=== PATIENT | male | born 1945 | race Caucasian/White ===

== ENCOUNTER → 2018-01-31 13:06 | Outpatient (CLI) | payer MEDICARE, SELFPAY ==
[2018-01-31 14:04] LABS: Hematocrit 46.4 % (40-54); Hemoglobin 15.3 g/dl (13.0-16.5); Mean Corpuscular Hgb 29.3 pg (27.0-32.0); Mean Corpuscular Volume 88.9 fL (80-94); Mean Platelet Vol. 9.5 fl (6.2-12.0); Platelet Count 204 K/mm3 (150-450); RBC Distribution Width SD 42.1 fl (35.1-43.9); Red Blood Count 5.22 M/mm3 (4.6-6.2); White Blood Count 5.9 K/mm3 (4.4-11.0)
[2018-01-31 14:05] LABS: Scan Indicated on CBC? Y/N NO
[2018-01-31 14:35] LABS: Valproic Acid (Depakene) Level 44 ug/mL (50-100)
[2018-01-31 14:37] LABS: AST(SGOT) 14 U/L (15-37); Alanine Aminotransfer ALT/SGPT 21 U/L (16-61); Albumin, Serum 3.7 g/dL (3.2-5.0); Alkaline Phosphatase 65 U/L (45-117); Bilirubin, Direct 0.12 mg/dL (0.00-0.30); Globulin 3.4 g/dL (2.2-4.2); Protein, Total 7.1 g/dL (6.4-8.2)
== END ==
PROVIDERS: Visit Provider Psychiatry & Neurology Psychiatry
DX: F34.0 Cyclothymic disorder (principal); Z79.899 Other long term (current) drug therapy
CPT/HCPCS: 36415; 80076; 80164; 85027

== ENCOUNTER → 2018-07-19 10:44 | Outpatient (CLI) | payer MEDICARE, SELFPAY ==
[2018-07-19 11:55] LABS: Hematocrit 44.4 % (40-54); Hemoglobin 15.2 g/dl (13.0-16.5); Mean Corp Hgb Conc 34.2 g/gl (32-36); Mean Corpuscular Hgb 30.3 pg (27.0-32.0); Mean Corpuscular Volume 88.4 fL (80-94); Mean Platelet Vol. 9.9 fl (6.2-12.0); Platelet Count 216 K/mm3 (150-450); RBC Distribution Width CV 13.3 % (11.6-14.6); Red Blood Count 5.02 M/mm3 (4.6-6.2); White Blood Count 4.7 K/mm3 (4.4-11.0)
[2018-07-19 11:57] LABS: Scan Indicated on CBC? Y/N NO
[2018-07-19 12:54] LABS: Valproic Acid (Depakene) Level 54 ug/mL (50-100)
== END ==
PROVIDERS: Referring Provider Psychiatry & Neurology Psychiatry; Visit Provider Psychiatry & Neurology Psychiatry
DX: F34.0 Cyclothymic disorder (principal)
CPT/HCPCS: 36415; 80164; 85027

== ENCOUNTER → 2018-11-17 09:47 | Outpatient (CLI) | payer MEDICARE, SELFPAY ==
--- NOTE | 2018-11-17 09:55 | RAD_ITS ---
STUDY: X-RAY - LEFT KNEE REASON FOR EXAM: Male, 72 years old. Pain TECHNIQUE: 3 view(s) of the knee. COMPARISON: None. FINDINGS: Normal visualized distal femur. Normal visualized proximal tibia and fibula. Normal proximal tibiofibular articulation. Normal medial femorotibial compartment. Normal lateral femorotibial compartment. Normal patellofemoral articulation. The soft tissue structures are unremarkable. RAD/Knee 3 Views IMPRESSION: Normal x-ray examination of the knee. Electronically Signed: Barry Dias MD at 23:44 EST Tel , Service support ,
== END ==
LOC: MTLAB 09:51 → MTRAD 10:01
PROVIDERS: Family Provider Family Medicine; PCP Family Medicine; Referring Provider Family Medicine; Visit Provider Family Medicine
DX: M25.569 Pain in unspecified knee (principal); E78.5 Hyperlipidemia, unspecified; R00.2 Palpitations
CPT/HCPCS: 73562

== ENCOUNTER → 2018-11-24 10:10 | Outpatient (CLI) | payer MEDICARE, SELFPAY ==
[2018-11-24 12:02] LABS: Absolute Lymphocyte Count 2.14 X10^3/ul (0.83-4.51); Absolute Neutrophil Count 3.1 X10^3/uL (2.0-7.7); Basophil# 0.05 X10^3/uL; Basophil% 0.9 % (0-1); Eosinophils% 1.7 % (0-5); Hemoglobin 15.5 g/dl (13.0-16.5); Lymphocyte # 2.14 X10^3/ul (4.0); Lymphocyte % 36.5 % (19-41); Mean Corpuscular Hgb 29.6 pg (27.0-32.0); Mean Corpuscular Volume 89.7 fL (80-94); Mean Platelet Vol. 10.4 fl (6.2-12.0); Monocyte% 6.8 % (0-10); Neutrophil # 3.14 X10^3/uL (2.7-7.7); Neutrophil % 53.6 % (47-70); Platelet Count 252 K/mm3 (150-450); RBC Distribution Width CV 13.3 % (11.6-14.6); RBC Distribution Width SD 43.6 fl (35.1-43.9); Red Blood Count 5.24 M/mm3 (4.6-6.2); White Blood Count 5.9 K/mm3 (4.4-11.0)
[2018-11-24 12:06] LABS: POSITIVE COUNT NO; POSITIVE DIFFERENTIAL NO; POSITIVE MORPHOLOGY NO
[2018-11-24 12:24] LABS: ALB/GLOB Ratio 0.9 RATIO (0.9-2.4); AST(SGOT) 13 U/L (15-37); Alanine Aminotransfer ALT/SGPT 29 U/L (16-61); Albumin, Serum 3.5 g/dL (3.2-5.0); Alkaline Phosphatase 77 U/L (45-117); Anion Gap 10 (5-15); BUN 21 mg/dL (7-18); BUN/Creat Ratio 17.6 RATIO (10-20); Calcium,Total 9.2 mg/dL (8.5-10.1); Chloride 105 mmol/L (98-107); Cholesterol 159 mg/dL (200); Creatinine, Serum 1.19 mg/dL (0.70-1.30); EST Glomerular Filtration Rate 64 mL/min (>60); Est Glom Filt Rate - Afr Amer 78 mL/min (>60); Globulin 3.8 g/dL (2.2-4.2); Glucose 83 mg/dL (74-106); High Density Lipoprotein 35 mg/dL; Magnesium 2.2 mg/dL (1.6-2.6); Potassium 4.7 mmol/L (3.5-5.1); Protein, Total 7.3 g/dL (6.4-8.2); Sodium Level 142 mmol/L (136-145); Thyroid Stim Hormone (TSH) 1.82 uIU/mL (0.358-3.74); Triglycerides 265 mg/dL; Very Low Density Lipoprotein 53 mg/dL (5-40)
== END ==
PROVIDERS: Family Provider Family Medicine; PCP Family Medicine; Referring Provider Family Medicine; Visit Provider Family Medicine
DX: E78.5 Hyperlipidemia, unspecified (principal); R00.2 Palpitations
CPT/HCPCS: 36415; 80053; 80061; 83735; 84443; 85025

== ENCOUNTER → 2019-08-15 10:22 | Outpatient (CLI) | payer MEDICARE, SELFPAY ==
[2019-08-15 12:52] LABS: Hemoglobin 15.7 g/dL (13.0-16.5); Mean Corp Hgb Conc 32.7 g/dL (32-36); Mean Corpuscular Hgb 29.5 pg (27.0-32.0); Mean Corpuscular Volume 90.1 fL (80-94); Mean Platelet Vol. 9.7 fl (6.2-12.0); Platelet Count 214 K/mm3 (150-450); RBC Distribution Width CV 12.8 % (11.6-14.6); RBC Distribution Width SD 41.8 fl (35.1-43.9); Red Blood Count 5.33 M/mm3 (4.6-6.2); White Blood Count 4.9 K/mm3 (4.4-11.0)
[2019-08-15 13:00] LABS: ALB/GLOB Ratio 0.9 RATIO (0.9-2.4); AST(SGOT) 16 U/L (15-37); Alanine Aminotransfer ALT/SGPT 26 U/L (16-61); Albumin, Serum 3.4 g/dL (3.2-5.0); Alkaline Phosphatase 64 U/L (45-117); Anion Gap 6 (5-15); BUN 16 mg/dL (7-18); BUN/Creat Ratio 13.6 RATIO (10-20); Chloride 109 mmol/L (98-107); Creatinine, Serum 1.18 mg/dL (0.70-1.30); EST Glomerular Filtration Rate 65 mL/min (>60); Est Glom Filt Rate - Afr Amer 78 mL/min (>60); Globulin 3.6 g/dL (2.2-4.2); Glucose 86 mg/dL (74-106); Potassium 4.4 mmol/L (3.5-5.1); Sodium Level 139 mmol/L (136-145)
[2019-08-15 13:15] LABS: Hemoglobin A1c 5.8 % (4.2-6.3)
[2019-08-15 13:59] LABS: Valproic Acid (Depakene) Level 62 ug/mL (50-100)
== END ==
PROVIDERS: Family Provider Family Medicine; PCP Family Medicine; Referring Provider Psychiatry & Neurology Psychiatry; Visit Provider Psychiatry & Neurology Psychiatry
DX: Z51.81 Encounter for therapeutic drug level monitoring (principal); Z79.899 Other long term (current) drug therapy
CPT/HCPCS: 36415; 80053; 80164; 83036; 85027

== ENCOUNTER → 2020-02-23 09:03 | Outpatient (CLI) | payer MEDICARE, SELFPAY ==
[2020-02-23 10:20] LABS: Hematocrit 47.9 % (40-54); Hemoglobin 15.8 g/dL (13.0-16.5); Mean Corpuscular Hgb 29.1 pg (27.0-32.0); Mean Corpuscular Volume 88.2 fL (80-94); Mean Platelet Vol. 9.5 fl (6.2-12.0); Platelet Count 263 K/mm3 (150-450); RBC Distribution Width CV 13.1 % (11.6-14.6); Red Blood Count 5.43 M/mm3 (4.6-6.2); White Blood Count 5.5 K/mm3 (4.4-11.0)
[2020-02-23 10:42] LABS: Valproic Acid (Depakene) Level 52 ug/mL (50-100)
[2020-02-23 10:49] LABS: AST(SGOT) 17 U/L (15-37); Alanine Aminotransfer ALT/SGPT 37 U/L (16-61); Albumin, Serum 3.4 g/dL (3.2-5.0); Alkaline Phosphatase 67 U/L (45-117); Bilirubin, Direct 0.12 mg/dL (0.00-0.30); Cholesterol 170 mg/dL (200); Globulin 3.7 g/dL (2.2-4.2); High Density Lipoprotein 38 mg/dL; Protein, Total 7.1 g/dL (6.4-8.2); Triglycerides 213 mg/dL; Very Low Density Lipoprotein 43 mg/dL (5-40)
== END ==
PROVIDERS: PCP Family Medicine; Referring Provider Psychiatry & Neurology Psychiatry; Visit Provider Psychiatry & Neurology Psychiatry
DX: F34.0 Cyclothymic disorder (principal)
CPT/HCPCS: 36415; 80061; 80076; 80164; 85027

== ENCOUNTER → 2020-08-29 12:19 | Outpatient (CLI) | payer MEDICARE, SELFPAY ==
[2020-08-29 15:23] LABS: Hematocrit 48.3 % (40-54); Hemoglobin 16.1 g/dL (13.0-16.5); Mean Corp Hgb Conc 33.3 g/dL (32-36); Mean Corpuscular Hgb 29.8 pg (27.0-32.0); Mean Corpuscular Volume 89.3 fL (80-94); Mean Platelet Vol. 10.5 fl (6.2-12.0); Platelet Count 262 K/mm3 (150-450); RBC Distribution Width CV 12.6 % (11.6-14.6); RBC Distribution Width SD 41.1 fl (35.1-43.9); Red Blood Count 5.41 M/mm3 (4.6-6.2); White Blood Count 5.3 K/mm3 (4.4-11.0)
[2020-08-29 16:09] LABS: AST(SGOT) 17 U/L (15-37); Alanine Aminotransfer ALT/SGPT 37 U/L (16-61); Albumin, Serum 3.4 g/dL (3.2-5.0); Alkaline Phosphatase 83 U/L (45-117); Bilirubin, Direct 0.14 mg/dL (0.00-0.30); Globulin 3.7 g/dL (2.2-4.2); Protein, Total 7.1 g/dL (6.4-8.2)
[2020-08-29 16:10] LABS: Valproic Acid (Depakene) Level 68 ug/mL (50-100)
== END ==
PROVIDERS: PCP Family Medicine; Referring Provider Psychiatry & Neurology Psychiatry; Visit Provider Psychiatry & Neurology Psychiatry
DX: Z51.81 Encounter for therapeutic drug level monitoring (principal); Z79.899 Other long term (current) drug therapy
CPT/HCPCS: 36415; 80076; 80164; 85027

== ENCOUNTER → 2021-02-14 12:03 | Outpatient (CLI) | payer MEDICARE, SELFPAY ==
[2021-02-14 15:08] LABS: Hematocrit 51.4 % (40-54); Hemoglobin 16.6 g/dL (13.0-16.5); Mean Corp Hgb Conc 32.3 g/dL (32-36); Mean Corpuscular Hgb 28.9 pg (27.0-32.0); Mean Corpuscular Volume 89.4 fL (80-94); Mean Platelet Vol. 10.1 fl (6.2-12.0); Platelet Count 255 K/mm3 (150-450); RBC Distribution Width CV 12.9 % (11.6-14.6); RBC Distribution Width SD 42.6 fl (35.1-43.9); Red Blood Count 5.75 M/mm3 (4.6-6.2); White Blood Count 5.2 K/mm3 (4.4-11.0)
[2021-02-14 15:26] LABS: Valproic Acid (Depakene) Level 91 ug/mL (50-100)
[2021-02-14 15:32] LABS: AST(SGOT) 14 U/L (15-37); Alanine Aminotransfer ALT/SGPT 33 U/L (16-61); Albumin, Serum 3.5 g/dL (3.2-5.0); Alkaline Phosphatase 72 U/L (45-117); Bilirubin, Direct 0.17 mg/dL (0.00-0.30); Globulin 3.8 g/dL (2.2-4.2); Protein, Total 7.3 g/dL (6.4-8.2)
== END ==
PROVIDERS: PCP Family Medicine; Referring Provider Psychiatry & Neurology Psychiatry; Visit Provider Psychiatry & Neurology Psychiatry
DX: Z01.818 Encounter for other preprocedural examination (principal); Z52.001 Unspecified donor, stem cells; Z79.899 Other long term (current) drug therapy
CPT/HCPCS: 36415; 80076; 80164; 85027; 86900; 86901

== ENCOUNTER → 2021-02-17 12:58 | Outpatient (CLI) | payer SELFPAY | PROVIDERS: PCP Family Medicine | DX: Z52.9 Donor of unspecified organ or tissue (principal) ==

== ENCOUNTER 2021-11-14 10:21 | Outpatient (CLI) | payer MEDICARE, SELFPAY ==
[2021-11-14 12:24] LABS: Hematocrit 52.3 % (40-54); Mean Corp Hgb Conc 32.5 g/dL (32-36); Mean Corpuscular Hgb 28.7 pg (27.0-32.0); Mean Corpuscular Volume 88.3 fL (80-94); Mean Platelet Vol. 10.1 fl (6.2-12.0); Platelet Count 272 K/mm3 (150-450); RBC Distribution Width CV 12.7 % (11.6-14.6); RBC Distribution Width SD 41.1 fl (35.1-43.9); Red Blood Count 5.92 M/mm3 (4.6-6.2)
[2021-11-14 12:46] LABS: Valproic Acid (Depakene) Level 61 ug/mL (50-100)
[2021-11-14 12:53] LABS: AST(SGOT) 17 U/L (15-37); Alanine Aminotransfer ALT/SGPT 37 U/L (16-61); Albumin, Serum 3.7 g/dL (3.2-5.0); Alkaline Phosphatase 69 U/L (45-117); Bilirubin, Direct 0.16 mg/dL (0.00-0.30); Globulin 4.1 g/dL (2.2-4.2); Protein, Total 7.8 g/dL (6.4-8.2)
== END 2021-11-14 23:59 | disposition short-term general hospital (02) ==
LOC: MTLAB 10:22
PROVIDERS: PCP Family Medicine; Referring Provider Psychiatry & Neurology Psychiatry; Visit Provider Psychiatry & Neurology Psychiatry
DX: Z51.81 Encounter for therapeutic drug level monitoring (principal); Z79.899 Other long term (current) drug therapy
CPT/HCPCS: 36415; 80076; 80164; 85027

== ENCOUNTER → 2022-08-31 | Outpatient (CLI) | payer MEDICARE, SELFPAY ==
[2022-08-31 15:29] LABS: Hematocrit 47.3 % (40-54); Mean Corp Hgb Conc 33.8 g/dL (32-36); Mean Corpuscular Hgb 29.5 pg (27.0-32.0); Mean Corpuscular Volume 87.3 fL (80-94); Mean Platelet Vol. 9.9 fl (6.2-12.0); Platelet Count 265 K/mm3 (150-450); RBC Distribution Width CV 13.2 % (11.6-14.6); RBC Distribution Width SD 41.6 fl (35.1-43.9); Red Blood Count 5.42 M/mm3 (4.6-6.2); White Blood Count 5.9 K/mm3 (4.4-11.0)
[2022-08-31 15:42] LABS: ALB/GLOB Ratio 0.9 RATIO (0.9-2.4); AST(SGOT) 14 U/L (15-37); Alanine Aminotransfer ALT/SGPT 27 U/L (16-61); Albumin, Serum 3.4 g/dL (3.2-5.0); Alkaline Phosphatase 73 U/L (45-117); Anion Gap 8 (5-15); BUN 22 mg/dL (7-18); BUN/Creat Ratio 16.4 RATIO (10-20); Calcium,Total 9.4 mg/dL (8.5-10.1); Chloride 107 mmol/L (98-107); Creatinine, Serum 1.34 mg/dL (0.70-1.30); EST Glomerular Filtration Rate 55 mL/min (>60); Est Glom Filt Rate - Afr Amer 67 mL/min (>60); Globulin 3.6 g/dL (2.2-4.2); Glucose 166 mg/dL (74-106); Sodium Level 138 mmol/L (136-145)
[2022-08-31 15:58] LABS: Valproic Acid (Depakene) Level 69 ug/mL (50-100)
[2022-08-31 16:03] LABS: Hemoglobin A1c 5.7 % (3.8-5.6)
== END | disposition home or self-care (01) ==
PROVIDERS: PCP Family Medicine; Referring Provider Psychiatry & Neurology Psychiatry; Visit Provider Psychiatry & Neurology Psychiatry
DX: R73.9 Hyperglycemia, unspecified (principal); Z79.899 Other long term (current) drug therapy
CPT/HCPCS: 36415; 80053; 80164; 83036; 85027

== ENCOUNTER → 2023-03-24 | Outpatient (CLI) | payer MEDICARE, SELFPAY ==
[2023-03-24 15:35] LABS: Hematocrit 49.5 % (40-54); Hemoglobin 16.3 g/dL (13.0-16.5); Mean Corp Hgb Conc 32.9 g/dL (32-36); Mean Corpuscular Hgb 29.4 pg (27.0-32.0); Mean Corpuscular Volume 89.4 fL (80-94); Mean Platelet Vol. 10.1 fl (6.2-12.0); Platelet Count 232 K/mm3 (150-450); RBC Distribution Width SD 42.4 fl (35.1-43.9); Red Blood Count 5.54 M/mm3 (4.6-6.2); White Blood Count 5.8 K/mm3 (4.4-11.0)
[2023-03-24 16:10] LABS: Valproic Acid (Depakene) Level 45 ug/mL (50-100)
[2023-03-24 16:22] LABS: AST(SGOT) 16 U/L (15-37); Alanine Aminotransfer ALT/SGPT 23 U/L (16-61); Albumin, Serum 3.3 g/dL (3.2-5.0); Alkaline Phosphatase 62 U/L (45-117); Bilirubin, Direct 0.13 mg/dL (0.00-0.30); Globulin 3.8 g/dL (2.2-4.2); Protein, Total 7.1 g/dL (6.4-8.2)
== END | disposition home or self-care (01) ==
LOC: MTLAB 11:46
PROVIDERS: PCP Family Medicine; Referring Provider Psychiatry & Neurology Psychiatry; Visit Provider Psychiatry & Neurology Psychiatry
DX: Z79.899 Other long term (current) drug therapy (principal)
CPT/HCPCS: 36415; 80076; 80164; 85027

== ENCOUNTER 2024-01-19 09:12 | Emergency (ER) | payer OTHER, MEDICARE, SELFPAY ==
[2024-01-19] VITALS (10 sets, daily range): BP systolic 129–169; BP diastolic 78–100; PULSE 62–82; RESP 16–30; TEMP 36.7; O2SAT 94–98; BMI 34.7
--- NOTE | 2024-01-19 09:37 | EKG12_ITS ---
Test Reason : ALT Blood Pressure : / mmHG Vent. Rate : 075 BPM Atrial Rate : 075 BPM P-R Int : 152 ms QRS Dur : 086 ms QT Int : 364 ms P-R-T Axes : 030 -15 067 degrees QTc Int : 406 ms Normal sinus rhythm with sinus arrhythmia Nonspecific ST abnormality Abnormal ECG Confirmed by LAKHWINDER CARRIZALES, MARIANELA ([id number]), editor magazine [employer] ([id number]) on 01/20/2024 8:58:14 AM Referred By: Confirmed By:MARIANELA KEANE MD
--- NOTE | 2024-01-19 09:37 | RAD_ITS ---
INDICATION: hypertension EXAMINATION/TECHNIQUE: X-RAY - XR Chest 1 View COMPARISON: No relevant prior comparison study available FINDINGS: LINES/DEVICES: None. LUNGS: Hypoventilatory changes in lung bases. No focal infiltrate is seen. No evidence of pleural effusions. MEDIASTINUM AND CARDIOVASCULAR STRUCTURES: Cardiac silhouette not enlarged. Central airways and mediastinal contour are unremarkable. BONES AND SOFT TISSUES: Unremarkable. RAD/Chest 1 View (Portable) IMPRESSION: No radiographic evidence of acute cardiopulmonary disease. Electronically Signed: Rd Bustillo MD at 10:19 EDT ,
--- NOTE | 2024-01-19 09:37 | CT_ITS ---
INDICATION: Altered mental status. EXAMINATION: CT BRAIN - CT Head or Brain W/O Contrast Injection TECHNIQUE: Multiple axial images were obtained of the head without intravenous contrast. A radiation dose optimization technique was used for this scan. IV Contrast dosage and agent: None. RADIATION DOSAGE (If Supplied By Facility): CTDIvol = ( 44.99 ) mGy, DLP = ( 907.97 ) mGycm COMPARISON: No relevant prior comparison study available FINDINGS: BRAIN PARENCHYMA: No intra- or extra-axial hemorrhage. No evidence of acute infarct. No intracranial mass or mass effect. There is preservation of the cheng/white matter interface. Mild chronic periventricular deep white matter changes likely due to microvascular disease. Posterior fossa structures are unremarkable. CSF SPACES: Mild diffuse atrophy. No hydrocephalus. Basal cisterns are patent. CALVARIUM, SKULL BASE, PARANASAL SINUSES AND MASTOID AIR CELLS: Clear. No discrete lytic or blastic abnormalities. ORBITS: Both globes, extraocular muscles, optic nerves and retrobulbar fat appear unremarkable. CT/Brain/Head without Contrast IMPRESSION: No acute intracranial process. Electronically Signed: Rd Bustillo MD at 10:19 EDT ,
--- NOTE | 2024-01-19 09:38 | EX.ED.DYSGE1 ---
HPI History of Present Illness Chief Complaint: Weakness Informant: patient, family and EMS Narrative Narrative: 78-year-old male brought to the emergency department via EMS with a chief complaint of weakness. Patient can recall that yesterday he went and bought berries and hubcap but does not know if he slept in his bed last night. He states that he knows that he was in a chair at some point was unable to get up. 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 Apparently sometime passed and the patient was found on the ground by the [place] gentleman. Patient reportedly incontinent of urine. He states he feels weak but feels that all of his arms and legs are moving okay. He denies any pain. No dyspnea. Patient states he used to see a retired psychiatrist as his primary care doctor in 10 years ago [facility] [place] He states he was last there in November. He does not know his medicines or any medical problems he is treated for. He is unsure of prior surgeries. PFSH PFSH Medical History unable to obtain unable to obtain Home Medications atorvastatin 20 mg tablet 20 mg PO DAILY 01/19/24 [History Last Taken Unknown] cyanocobalamin (vitamin B-12) PO 01/19/24 [History Last Taken Unknown] fluoxetine 20 mg capsule 20 mg PO DAILY 01/19/24 [History Last Taken Unknown] folic acid 400 mcg tablet 400 mcg PO DAILY 01/19/24 [History Last Taken Unknown] omega-3 fatty acids PO 01/19/24 [History Last Taken Unknown] timolol ophthalmic (eye) 01/19/24 [History Last Taken Unknown] valproic acid 250 mg capsule 250 mg PO BID 01/19/24 [History Last Taken Unknown] Allergy/AdvReac Type Severity Reaction Status Date / Time No Known Allergies Allergy Verified 01/19/24 09:13 Surgical History unable to obtain unable to obtain Social History Smoking Status: Never smoker ROS ROS ED ROS Narrative Patient reports generalized weakness and that his legs were not working this morning. Constitutional Constitutional ED: Denies chills, fever(s) or weight loss Eyes Eyes: Denies change in vision or diplopia ENT ENT ED: Denies ear pain, rhinorrhea or sore throat Cardiovascular Cardiovascular: Denies chest pain, orthopnea, palpitations or racing heartbeat Respiratory/Chest Respiratory/Chest: Denies cough, dyspnea or orthopnea Gastrointestinal Gastrointestinal: Denies abdominal pain, diarrhea, nausea or vomiting Genitourinary Genitourinary ED: Denies dysuria, hematuria or urinary frequency Musculoskeletal Musculoskeletal: Denies arthralgias or myalgias Integumentary Denies abscess or rash Neurologic Neurologic: Denies headache(s) or weakness Psychiatric Psychiatric: Denies anxiety, depression, suicidal ideation or suicidal thoughts Endocrine Endocrinology: Denies polydipsia, polyphagia or polyuria Allergic/Immunologic Allergic/Immunologic ED: Denies mouth swelling, tongue swelling or urticaria EXAM Physical Exam Narrative Exam Narrative: Patient has a strong smell of urine about him. Const Vital Signs: 01/19/24 09:13 01/19/24 09:20 01/19/24 11:12 Temperature 98.0 F Temperature Source Oral Pulse Rate 77 62 Respiratory Rate 19 H 16 Respiratory Effort Normal Non-Labored Respiratory Pattern Normal Blood Pressure 141/87 H 129/82 H Blood Pressure Mean 105 97 Pulse Ox 96 97 Oxygen Delivery Method Room Air Room Air 01/19/24 11:55 01/19/24 12:00 01/19/24 12:15 Temperature Temperature Source Pulse Rate 74 73 70 Respiratory Rate 30 H 30 H 29 H Respiratory Effort Respiratory Pattern Blood Pressure 145/90 H 149/93 H Blood Pressure Mean 106 111 Pulse Ox 96 98 94 Oxygen Delivery Method 01/19/24 12:30 01/19/24 12:45 01/19/24 13:00 Temperature Temperature Source Pulse Rate 77 82 69 Respiratory Rate 28 H 25 H 25 H Respiratory Effort Respiratory Pattern Blood Pressure 155/97 H 158/100 H 161/97 H Blood Pressure Mean 111 114 114 Pulse Ox 94 95 Oxygen Delivery Method 01/19/24 13:15 01/19/24 15:00 Temperature Temperature Source Pulse Rate 68 64 Respiratory Rate 21 H 16 Respiratory Effort Respiratory Pattern Blood Pressure 169/93 H 129/78 H Blood Pressure Mean 114 95 Pulse Ox 96 97 Oxygen Delivery Method Room Air Positive well nourished, well developed and obese General Appearance ED: well developed Nutritional Appearance: obese HEENT Reports normocephalic, head/scalp atraumatic and moist mucous membranes Eyes PERRL and EOMs intact bilaterally Neck no lymphadenopathy, supple and no JVD Resp normal respiratory effort and clear to auscultation bilaterally Cardio regular rate, regular rhythm and no murmurs GI normal to inspection, nondistended, normoactive bowel sounds and non-tender Palpation: soft Back/Spine no CVA tenderness and normal ROM Extremity General Extremety ED: Yes edema General Extremity: edema bilateral lower extremity Details: mild Neuro oriented x3 and CN's II-XII intact bilaterally Sensorium / Orientation: alert Motor Exam: strength 5/5 throughout Psych Appearance: grossly normal Attitude: calm Activity / Motor Behavior: appropriate eye contact Mood & Affect: Negative for depressed or tearful Thought Process: circumstantial and disorganized Skin no rashes or lesions noted and no wounds MDM MDM MDM Narrative Medical decision making narrative: CT of the brain demonstrates no acute process. Interpretation of the chest x-ray is no acute process. Hemoglobin 15.4 with a white count of 6.7. Platelet count of 156. BMP shows a BUN of 19 creatinine 1.50 normal sodium and potassium. Anion gap is 6 CO2 of 24. Normal liver enzymes. Normal lipase. Troponin is 20 BNP at 65.5. Valproic acid is within normal limits. Urinalysis with no obvious infection. Patient is up and walking. He seems at baseline per family. They feel comfortable taking him home. I am not seeing an obvious cause for the patient's symptoms. He is not sure why his legs were not working. Family will be able to stay with him tonight. They are to return if there is any concerns for the patient is worsening. History & Record Review Discussion w/independent historian: EMS personnel, Patient and Family Lab Data Attestation: I reviewed the patient's lab results. Labs: Laboratory Results - last 24 hr 01/19/24 01/19/24 01/19/24 09:40 10:20 11:20 WBC 6.7 RBC 5.22 Hgb 15.4 Hct 47.2 MCV 90.4 MCH 29.5 MCHC 32.6 RDW Std Deviation 43.8 RDW Coeff of Jaida 13.2 Plt Count 156 MPV 10.3 Immature Gran % (Auto) 1.600 H Neut % (Auto) 72.7 H Lymph % (Auto) 10.5 L Peach % (Auto) 14.1 H Eos % (Auto) 0.4 Baso % (Auto) 0.7 Absolute Neuts (auto) 4.9 Absolute Lymphs (auto) 0.71 L Nucleated RBC % 0 PT 14.3 INR 1.1 APTT 30.6 Sodium Cancelled 139 Potassium Cancelled 4.2 Chloride Cancelled 109 H Carbon Dioxide Cancelled 24.0 Anion Gap Cancelled 6 BUN Cancelled 19 H Creatinine Cancelled 1.50 H Estim Creat Clear Calc Cancelled 50.45 Est GFR (MDRD) Af Amer Cancelled 59 L Est GFR (MDRD) Non-Af Cancelled 48 L BUN/Creatinine Ratio Cancelled 12.7 Glucose Cancelled 91 Calcium Cancelled 9.0 Total Bilirubin Cancelled 0.60 Direct Bilirubin Cancelled 0.18 AST Cancelled 17 ALT Cancelled 23 Alkaline Phosphatase Cancelled 53 Troponin I High Sens Cancelled 20 B-Natriuretic Peptide 65.5 Total Protein Cancelled 6.7 Albumin Cancelled 3.2 Globulin Cancelled 3.5 Lipase Cancelled 36 Urine Color Yellow Urine Clarity Clear Urine pH 6.0 Ur Specific Kyle 1.015 Urine Protein Negative Urine Glucose (UA) Normal Urine Ketones 5 H Urine Occult Blood 10 H Urine Nitrite Negative Urine Bilirubin Negative Urine Urobilinogen Normal Ur Leukocyte Esterase Negative Urine RBC 0 SEEN Urine WBC 0 SEEN Ur Squamous Epith Cells 0-5 SEEN Urine Bacteria 0 SEEN Urine Mucus 0 SEEN Valproic Acid 01/19/24 13:41 WBC RBC Hgb Hct MCV MCH MCHC RDW Std Deviation RDW Coeff of Jaida Plt Count MPV Immature Gran % (Auto) Neut % (Auto) Lymph % (Auto) Peach % (Auto) Eos % (Auto) Baso % (Auto) Absolute Neuts (auto) Absolute Lymphs (auto) Nucleated RBC % PT INR APTT Sodium Potassium Chloride Carbon Dioxide Anion Gap BUN Creatinine Estim Creat Clear Calc Est GFR (MDRD) Af Amer Est GFR (MDRD) Non-Af BUN/Creatinine Ratio Glucose Calcium Total Bilirubin Direct Bilirubin AST ALT Alkaline Phosphatase Troponin I High Sens B-Natriuretic Peptide Total Protein Albumin Globulin Lipase Urine Color Urine Clarity Urine pH Ur Specific Kyle Urine Protein Urine Glucose (UA) Urine Ketones Urine Occult Blood Urine Nitrite Urine Bilirubin Urine Urobilinogen Ur Leukocyte Esterase Urine RBC Urine WBC Ur Squamous Epith Cells Urine Bacteria Urine Mucus Valproic Acid 79 Radiography Diagnostic Testing: Clinical Impression(s) from Imaging Studies Brain CT 01/19/24 09:37 IMPRESSION: No acute intracranial process. Electronically Signed: Rd Bustillo MD at 10:19 EDT , Chest X-Ray 01/19/24 09:37 IMPRESSION: No radiographic evidence of acute cardiopulmonary disease. Electronically Signed: Rd Bustillo MD at 10:19 EDT , EKG Initial EKG: Attestation: I personally reviewed and interpreted this EKG as follows: Comments: Normal sinus rhythm with a ventricular rate of 75 bpm. No definitive features of ACS noted Discharge Plan Triage Chief Complaint: Weakness ED Provider: Yfn Nguyễn Dx/Rx/DC Orders Clinical Impression: Weakness, Hypertension Instructions: ED Weakness (Uncertain Cause) Prescriptions: No Action valproic acid 250 mg capsule 250 mg PO BID fluoxetine 20 mg capsule 20 mg PO DAILY atorvastatin 20 mg tablet 20 mg PO DAILY timolol ophthalmic (eye) folic acid 400 mcg tablet 400 mcg PO DAILY cyanocobalamin (vitamin B-12) PO omega-3 fatty acids [Fish Oil] PO Primary Care Provider: Ramez Knox Referrals: Ramez Knox MD [Primary Care Provider] - 2 Days Disposition Disposition: Home, Self Care Discharge Date/Time: 01/19/24 15:16
--- NOTE | 2024-01-19 09:43 | NURSING ---
NO OLD EKGS
--- NOTE | 2024-01-19 09:50 | NURSING ---
CALLED [facility] FOR MEDICAL HISTORY OF PATIENT
[2024-01-19 09:54] LABS: Absolute Lymphocyte Count 0.71 X10^3/uL (0.83-4.51); Absolute Neutrophil Count 4.9 X10^3/uL (2.0-7.7); Basophil# 0.05 X10^3/uL; Basophil% 0.7 % (0-1); Eosinophil# 0.03 X10^3/uL; Eosinophils% 0.4 % (0-5); Hematocrit 47.2 % (40-54); Hemoglobin 15.4 g/dL (13.0-16.5); Lymphocyte # 0.71 X10^3/ul (0.83-4.51); Lymphocyte % 10.5 % (19-41); Mean Corp Hgb Conc 32.6 g/dL (32-36); Mean Corpuscular Hgb 29.5 pg (27.0-32.0); Mean Corpuscular Volume 90.4 fL (80-94); Mean Platelet Vol. 10.3 fl (6.2-12.0); Monocyte# 0.95 X10^3/uL; Monocyte% 14.1 % (0-10); NRBC Flagged by Analyzer 0 % (0-5); Neutrophil # 4.89 X10^3/uL (2.7-7.7); Neutrophil % 72.7 % (47-70); Platelet Count 156 K/mm3 (150-450); RBC Distribution Width CV 13.2 % (11.6-14.6); RBC Distribution Width SD 43.8 fl (35.1-43.9); Red Blood Count 5.22 M/mm3 (4.6-6.2); White Blood Count 6.7 K/mm3 (4.4-11.0)
[2024-01-19 10:02] LABS: International Normalized Ratio 1.1; Partial Thromboplast Time 30.6 Seconds (24.1-36.2); Prothrombin Time (Protime)PT. 14.3 SECONDS (11.7-14.9)
[2024-01-19 10:20] LABS: BNP,B-Type NATRIURETIC PEPTIDE 65.5 pg/mL (0-100)
--- NOTE | 2024-01-19 10:43 | NURSING ---
[facility]
[2024-01-19 11:02] LABS: AST(SGOT) 17 U/L (15-37); Alanine Aminotransfer ALT/SGPT 23 U/L (16-61); Albumin, Serum 3.2 g/dL (3.2-5.0); Alkaline Phosphatase 53 U/L (45-117); Anion Gap 6 (5-15); BUN 19 mg/dL (7-18); BUN/Creat Ratio 12.7 RATIO (10-20); Bilirubin, Direct 0.18 mg/dL (0.00-0.30); Chloride 109 mmol/L (98-107); EST Glomerular Filtration Rate 48 mL/min (>60); Est Glom Filt Rate - Afr Amer 59 mL/min (>60); Estimated Creatinine Clearance 50.45 ml/min; Globulin 3.5 g/dL (2.2-4.2); Glucose 91 mg/dL (74-106); Lipase 36 U/L (13-75); Potassium 4.2 mmol/L (3.5-5.1); Protein, Total 6.7 g/dL (6.4-8.2); Sodium Level 139 mmol/L (136-145); Troponin-I HS 20 pg/mL (3.0-78.0)
[2024-01-19 11:25] LABS: Bacteria 0 SEEN /hpf (None Seen); Mucous, Urine 0 SEEN /hpf (<or=2+); Red Blood Cells-Urine 0 SEEN /hpf (0-5); White Blood Cells 0 SEEN /hpf (0-5)
[2024-01-19 11:37] LABS: Color, Urine Yellow (Yellow); Glucose, Dipstick Normal (Normal); Ketone-Dipstick 5 mg/dl (Negative); Leukocyte Esterase-Dipstick Negative /ul (Negative); Nitrite-Dipstick Negative (Negative); Occult Blood-Urine 10 /ul (Negative); Protein-Dipstick Negative (Negative); Specific Gravity, Urine 1.015 (1.002-1.030); Urine Bilirubin Dipstick Negative (Negative); Urine Clarity Clear (Clear); Urine Urobilinogen Normal (Normal)
[2024-01-19 12:03] LABS: Squamous Epithelial Cells - UA 0-5 SEEN /hpf (0-5)
[2024-01-19 14:55] LABS: Valproic Acid (Depakene) Level 79 ug/mL (50-100)
== END 2024-01-19 15:16 | disposition home or self-care (01) ==
PROVIDERS: Emergency Provider Emergency Medicine; PCP Family Medicine; Visit Provider Emergency Medicine
DX: R53.1 Weakness (principal); I10 Essential (primary) hypertension; E66.9 Obesity, unspecified; Z79.899 Other long term (current) drug therapy; R32 Unspecified urinary incontinence
CPT/HCPCS: 70450; 71045; 80048; 80076; 80164; 81001; 83690; 83880; 84484; 85025; 85610; 85730; 93005; 99285; A4216